=== PATIENT | female | born 1940 | race Native Hawaiian/Other Pacific Islander ===

== ENCOUNTER 2016-09-18 13:13 | Outpatient (CLI) | payer OTHER ==
[~2016-09-18 13:13] MED LIST: FLUTMIS6 INH; TIOTCAP2 INH; TRIAMTERENE/HYD1 CAP PO
== END 2016-09-18 21:06 | disposition home or self-care (01) ==
LOC: LABW 13:13
DX: B35.1 Tinea unguium (principal)
CPT/HCPCS: 36415; 84450; 84460

== ENCOUNTER 2016-10-23 11:44 | Outpatient (CLI) | payer OTHER | END 2016-10-23 19:09 | disposition home or self-care (01) | LOC: LABW 11:44 | DX: B35.1 Tinea unguium (principal) | CPT/HCPCS: 36415; 84450; 84460 ==

== ENCOUNTER 2016-11-28 14:26 | Outpatient (CLI) | payer OTHER | END 2016-11-28 15:30 | disposition home or self-care (01) | LOC: RAD 14:26 | DX: M54.5 Low back pain (principal) ==

== ENCOUNTER 2017-02-13 10:03 | Outpatient (CLI) | payer OTHER ==
[2017-02-13 10:44] LABS: PLATELET COUNT 202 K/uL (152-353)
[2017-02-13 11:04] LABS: POTASSIUM 3.6 mmol/L (3.6-5.2)
== END 2017-02-13 11:05 | disposition home or self-care (01) ==
LOC: LABW 10:03
PROVIDERS: Internal Medicine
DX: I10 Essential (primary) hypertension (principal); D51.0 Vitamin B12 deficiency anemia due to intrinsic factor deficiency
CPT/HCPCS: 36415; 80053; 80061; 81000; 82607; 84439; 84443; 85027

== ENCOUNTER 2017-02-17 08:34 | Outpatient (CLI) | payer OTHER | END 2017-02-17 19:00 | disposition home or self-care (01) | LOC: MRI 08:34 | DX: M51.16 Intervertebral disc disorders with radiculopathy, lumbar region (principal) ==

== ENCOUNTER 2017-08-28 10:54 | Outpatient (CLI) | payer OTHER ==
[2017-08-28 11:33] LABS: PLATELET COUNT 221 K/uL (152-353)
[2017-08-28 14:02] LABS: POTASSIUM 3.7 mmol/L (3.6-5.2)
== END 2017-08-28 11:54 | disposition home or self-care (01) ==
LOC: LABW 10:54
PROVIDERS: Internal Medicine
DX: I10 Essential (primary) hypertension (principal); E55.9 Vitamin D deficiency, unspecified; D51.0 Vitamin B12 deficiency anemia due to intrinsic factor deficiency; Z98.890 Other specified postprocedural states
CPT/HCPCS: 36415; 80053; 80061; 81000; 82306; 82607; 84443; 85027

== ENCOUNTER 2017-11-13 12:08 | Outpatient (CLI) | payer OTHER ==
[2017-11-13 12:31] LABS: PLATELET COUNT 237 K/uL (152-353)
[2017-11-13 12:48] LABS: POTASSIUM 4.1 mmol/L (3.6-5.2)
== END 2017-11-13 22:38 | disposition home or self-care (01) ==
LOC: LABW 12:08
PROVIDERS: Physician Assistant
DX: R68.89 Other general symptoms and signs (principal); I10 Essential (primary) hypertension; D51.0 Vitamin B12 deficiency anemia due to intrinsic factor deficiency; R79.89 Other specified abnormal findings of blood chemistry
CPT/HCPCS: 36415; 80053; 82306; 82607; 82746; 83036; 84439; 84443; 85027

== ENCOUNTER 2017-11-23 08:48 | Emergency (ER) | payer OTHER ==
[~2017-11-23] VITALS: Ht 162.6 cm; Wt 90.7 kg
[2017-11-23 09:44] LABS: PLATELET COUNT 245 K/uL (152-353)
[2017-11-23 09:53] LABS: POTASSIUM 3.9 mmol/L (3.6-5.2)
[2017-11-23 12:16] VITALS: BP 150/68; TEMP 98.4
== END 2017-11-23 12:17 | disposition home or self-care (01) ==
LOC: ED 08:48
DX: J40 Bronchitis, not specified as acute or chronic (principal); I49.8 Other specified cardiac arrhythmias
CPT/HCPCS: 36415; 80053; 85027; 93005; 94664; 96374; 99284; J2930

== ENCOUNTER 2017-12-31 11:17 | Outpatient (CLI) | payer OTHER | END 2017-12-31 19:38 | disposition home or self-care (01) | LOC: LABW 11:17 | DX: R41.3 Other amnesia (principal) | CPT/HCPCS: 36415; 82607; 82746; 84443; 85651; 86039 ==

== ENCOUNTER 2018-03-08 13:43 | Outpatient (CLI) | payer OTHER | END 2018-03-08 23:24 | disposition home or self-care (01) | LOC: LABW 13:43 | DX: M10.072 Idiopathic gout, left ankle and foot (principal) | CPT/HCPCS: 36415; 84550; 85651 ==

== ENCOUNTER 2018-06-03 09:33 | Outpatient (CLI) | payer OTHER | END 2018-06-03 23:39 | disposition home or self-care (01) | LOC: LABW 09:33 | DX: M10.071 Idiopathic gout, right ankle and foot (principal) | CPT/HCPCS: 36415; 84550 ==

== ENCOUNTER 2018-06-14 10:31 | Emergency (ER) | payer OTHER ==
[~2018-06-14] VITALS: Ht 162.6 cm; Wt 89.8 kg
[2018-06-14] MEDS ORDERED: COZAAR25 MG PO (10:53)
[2018-06-14] MEDS ORDERED: TRIA37.541 PO (10:55)
[2018-06-14] MEDS ORDERED: ELIQUIS5 MG PO (10:55)
[2018-06-14 11:40] VITALS: BP 147/61; TEMP 97.9
== END 2018-06-14 11:40 | disposition home or self-care (01) ==
LOC: EDBD 10:31 → ED 10:31
DX: M51.86 Other intervertebral disc disorders, lumbar region (principal); M25.552 Pain in left hip
CPT/HCPCS: 99282

== ENCOUNTER 2018-07-15 05:52 | Outpatient (CLI) | payer OTHER ==
[~2018-07-15 05:52] MED LIST changes: +COZAAR25 MG PO; +ELIQUIS5 MG PO; +TRIA37.541 PO
[2018-07-15 06:40] LABS: POTASSIUM 3.9 mmol/L (3.6-5.2)
[2018-07-15 06:58] LABS: PLATELET COUNT 263 K/uL (152-353)
== END 2018-07-15 21:32 | disposition home or self-care (01) ==
LOC: LABW 05:52
PROVIDERS: Internal Medicine
DX: I10 Essential (primary) hypertension (principal)
CPT/HCPCS: 36415; 80053; 80061; 81000; 83735; 84439; 84443; 85027

== ENCOUNTER 2018-09-06 08:48 | Emergency (ER) | payer OTHER ==
[~2018-09-06] VITALS: Ht 162.6 cm; Wt 87.5 kg
[2018-09-06] MEDS ORDERED: ALLO100T22 PO (09:27)
[2018-09-06 10:20] VITALS: BP 125/63; TEMP 98.3
== END 2018-09-06 10:20 | disposition home or self-care (01) ==
LOC: ED 08:48
DX: J11.1 Influenza due to unidentified influenza virus with other respiratory manifestations (principal)
CPT/HCPCS: 87502; 94664; 99283

== ENCOUNTER 2018-12-24 09:27 | Outpatient (CLI) | payer OTHER ==
[~2018-12-24 09:27] MED LIST changes: +ALLO100T22 PO
[2018-12-24 10:13] LABS: PLATELET COUNT 227 K/uL (152-353)
[2018-12-24 10:29] LABS: POTASSIUM 3.8 mmol/L (3.6-5.2)
== END 2018-12-24 19:07 | disposition home or self-care (01) ==
LOC: LABW 09:27
PROVIDERS: Specialist
DX: G31.84 Mild cognitive impairment of uncertain or unknown etiology (principal); E53.8 Deficiency of other specified B group vitamins; I10 Essential (primary) hypertension
CPT/HCPCS: 36415; 80053; 82607; 83090; 85027; 85651; 86038

== ENCOUNTER 2019-03-24 09:53 | Outpatient (CLI) | payer OTHER | END 2019-03-24 19:41 | disposition home or self-care (01) | LOC: RESP 09:53 | DX: R06.02 Shortness of breath (principal) ==

== ENCOUNTER 2019-05-12 08:56 | Emergency (ER) | payer OTHER ==
[~2019-05-12] VITALS: Ht 162.6 cm; Wt 81.6 kg
[2019-05-12 09:05] VITALS: TEMP 97.5
[2019-05-12 10:42] VITALS: BP 157/54
== END 2019-05-12 10:50 | disposition home or self-care (01) ==
LOC: ED 08:56
DX: M47.896 Other spondylosis, lumbar region (principal); M47.894 Other spondylosis, thoracic region; M41.85 Other forms of scoliosis, thoracolumbar region
CPT/HCPCS: 81000; 99283

== ENCOUNTER 2019-07-28 11:54 | Outpatient (CLI) | payer OTHER | END 2019-07-28 22:42 | disposition home or self-care (01) | LOC: LABW 11:54 | DX: R41.3 Other amnesia (principal); I10 Essential (primary) hypertension | CPT/HCPCS: 36415; 82607; 83090; 85651; 86038 ==

== ENCOUNTER 2020-03-01 09:30 | Emergency (ER) | payer OTHER ==
[~2020-03-01] VITALS: Ht 162.6 cm; Wt 75.3 kg
[2020-03-01 09:46] VITALS: BP 179/72; TEMP 98.9
[2020-03-01 10:20] LABS: PLATELET COUNT 202 K/uL (152-353)
[2020-03-01 10:29] LABS: SODIUM 140 mmol/L (136-145)
== END 2020-03-01 11:21 | disposition home or self-care (01) ==
LOC: ED 09:30
PROVIDERS: Hospitalist
DX: J06.9 Acute upper respiratory infection, unspecified (principal); J44.9 Chronic obstructive pulmonary disease, unspecified; Z20.828 Contact with and (suspected) exposure to other viral communicable diseases
CPT/HCPCS: 36415; 80053; 82550; 82553; 83880; 84484; 85027; 85610; 85730; 87635; 87651; 93005; 99283; U0003

== ENCOUNTER 2020-03-30 08:12 | Emergency (ER) | payer OTHER ==
[~2020-03-30] VITALS: Ht 162.6 cm; Wt 75.3 kg
[2020-03-30 08:27] VITALS: TEMP 98.7
[2020-03-30 09:09] LABS: PLATELET COUNT 220 K/uL (152-353)
[2020-03-30 12:57] VITALS: BP 139/65
== END 2020-03-30 12:57 | disposition home or self-care (01) ==
LOC: ED 08:12
PROVIDERS: Family Medicine
DX: K52.89 Other specified noninfective gastroenteritis and colitis (principal); N28.9 Disorder of kidney and ureter, unspecified; E87.1 Hypo-osmolality and hyponatremia
CPT/HCPCS: 36415; 80053; 81000; 82150; 83690; 83880; 85027; 96374; 99284; J2405

== ENCOUNTER 2020-07-19 09:36 | Outpatient (CLI) | payer OTHER | END 2020-07-19 20:39 | disposition home or self-care (01) | LOC: LAB 09:36 | PROVIDERS: ATTEND Internal Medicine | DX: R05 Cough (principal); Z11.59 Encounter for screening for other viral diseases | CPT/HCPCS: 87635; G2023; U0003 ==

== ENCOUNTER 2020-07-19 10:12 | Outpatient (CLI) | payer OTHER | END 2020-07-19 20:44 | disposition home or self-care (01) | LOC: RAD 10:12 | PROVIDERS: ATTEND Internal Medicine | DX: R05 Cough (principal) ==

== ENCOUNTER 2020-11-30 08:58 | Observation (INO) | payer OTHER ==
[~2020-11-30] VITALS: Ht 162.6 cm; Wt 74.0 kg
--- NOTE | 2020-11-30 09:38 | NUR ---
PT TO FLOOR, D/A FROM FROM [facility]. PT IN WITH , SOB WITH EXERTION BUT IS 96% ON RA. PT ASSISTED TO BED, VS TAKEN, ADMISSION ASSESSMENT STARTED. . PT ASSISTED INTO GOWN, TELE #4 APPLIED. 20G IV STARTED TO LFA X 2 STICKS, LABS DRAWN, COVID SWAB COLLECTED, SPUTUM AND UA ALSO COLLECTED AND ALL SPECIMENS LABLED AND TAKEN TO LAB. PT BELONGINGS - WATCH, PURSE, GLASSES. DAUGHTER IN TO ASSIST WITH ADMISSION ASSESSMENT QUESTIONS. RT IN TO PERFORM EKG AND PLACE PT ON NC 2LPM. PT TO XRAY AND BACK. PT ORIENTED TO ROOM, CALL LIGHT AND IS EDUCATED TO CALL FOR ASSIST BEFORE AMBULATING TO BATHROOM. PT VERBALIZED UNDERSTANDING. FAMILY AT BEDSIDE. BED LOW, LOCKED, SR UP X2 AND BED ALARM SET.
[2020-11-30 10:32] LABS: PLATELET COUNT 175 K/uL (152-353)
[2020-11-30 10:55] LABS: POTASSIUM 3.8 mmol/L (3.6-5.2); SODIUM 143 mmol/L (136-145)
[2020-11-30 11:08] VITALS: BP 180/86; TEMP 98.4; Ht 162.6 cm; Wt 74.0 kg
[2020-11-30 12:00] VITALS: BP 186/58; TEMP 98.2
[2020-11-30] MEDS ORDERED: PANTOPRAZOLE 40MG TA PO (15:02)
[2020-11-30] MEDS ORDERED: VITAMIN D31000 UNIT PO (15:03)
[2020-11-30] MEDS ORDERED: OXYB5TAB56 PO (15:04)
[2020-11-30] MEDS ORDERED: POTASSIUM CHLO20 MEQ PO (15:05)
[2020-11-30] MEDS ORDERED: DONE5TAB PO (15:05)
[2020-11-30] MEDS ORDERED: MECLIZINE HCL25 MG PO (15:06)
--- NOTE | 2020-11-30 15:07 | NUR ---
HOME MEDS REC COMPLETED.
[2020-11-30 16:00] VITALS: BP 161/65; TEMP 98
[2020-11-30 19:51] VITALS: BP 178/73; TEMP 98.1
--- NOTE | 2020-11-30 20:10 | NUR ---
PM MEDS GIVEN AT THIS TIME. PT TOLERATED WELL. NC @ 2L INTACT IN A HIGH-FOWLERS POSITION. NAD NOTED. PT IS SATTING 97% AT THE TIME. CALL LIGHT WITHIN REACH. SON AT BEDSIDE.
[2020-11-30 23:42] VITALS: BP 132/75; TEMP 97.8
[2020-12-01 04:27] VITALS: BP 172/58; TEMP 98.1
--- NOTE | 2020-12-01 06:37 | NUR ---
Patient was admitted with COPD and afib and was screened as high ris for RD to evaluate and Pluerasy and is 5'4" at 163 lbs. and is a 80YOF, IBW = 120+/-10% (108 to 132 lbs.) and kcal needs for IBW x 25 = 1400, x30 = 1600, x 35 - 1900, x 40 = 2200 kcal/day, protein needs x .8 to 1.5 = 44 to 82 grams per day and fluids for IBW x 25 to 40 = 1400 to 2200 ml/cc per day. BMI at 27.97 and is overweight and is 136% of IBW. BP at 172/58, elevated labs reveal B Anila Peptide, T. Protein, MCHC, total Bilirubin, Creat Kinase, CK-MB and the labs that are depressed are alt and patient has a PMH of acoliasis, afib, RVR and acute, Bronchitis with chroni airway obstruction which is also acute, HTN which is chronic, acute intractable cough and is acute, chronic OA, HTN, and also has Bronchitis and K, Ditropan, Protonix, K-Dur, Dyazide, edema and is eating 100% of meals with set up. RD Recommendaitons: 1-Monitor Labs 2-PT to work with the paitent 3-OT to work with the patient 4-Monitor BP 5-[place] all food preferences and so state on the diet card and offere substitutes with all meals
[2020-12-01 07:52] LABS: PLATELET COUNT 181 K/uL (152-353)
[2020-12-01 08:00] LABS: POTASSIUM 3.7 mmol/L (3.6-5.2)
[2020-12-01 08:27] VITALS: BP 178/70; TEMP 98
--- NOTE | 2020-12-01 10:20 | NUR ---
DC INSTRUCTIONS EXPLAINED TO PT AND TO FAMILY WHO VERBALIZED UNDERSTANDING. IV DC WITH TIP INTACT, TELE DC AND RETURNED TO DESK. WRITTEN RX GIVEN TO PT'S .
--- NOTE | 2020-12-01 10:25 | NUR ---
PT DC HOME VIA WC IN NAD WITH FAMILY. PT LEFT FLOOR IN NAD.
== END 2020-12-01 10:25 | disposition home or self-care (01) ==
LOC: MED/SURG 08:58
PROVIDERS: ADMIT Internal Medicine Endocrinology, Diabetes & Metabolism; ATTEND Internal Medicine Endocrinology, Diabetes & Metabolism
DX: J44.1 Chronic obstructive pulmonary disease with (acute) exacerbation (principal); R07.89 Other chest pain; I10 Essential (primary) hypertension
CPT/HCPCS: 80048; 80053; 81000; 82550; 82553; 83880; 84484; 85027; 87070; 87205; 87635; 93005; 94760; 96365; 96367; 96375; 99220; G0378; G0379; J0456; J0696; J2920; U0003

== ENCOUNTER 2021-02-19 10:11 | Emergency (ER) | payer OTHER ==
[~2021-02-19] VITALS: Ht 162.6 cm; Wt 72.6 kg
[~2021-02-19 10:11] MED LIST changes: +DONE5TAB PO; +MECLIZINE HCL25 MG PO; +OXYB5TAB56 PO; +PANTOPRAZOLE 40MG TA PO; +POTASSIUM CHLO20 MEQ PO; +VITAMIN D31000 UNIT PO
[2021-02-19 11:27] LABS: PLATELET COUNT 198 K/uL (152-353)
[2021-02-19 12:00] VITALS: BP 163/62; TEMP 98
== END 2021-02-19 12:00 | disposition home or self-care (01) ==
LOC: ED 10:11
PROVIDERS: Emergency Medicine Emergency Medical Services
DX: J44.1 Chronic obstructive pulmonary disease with (acute) exacerbation (principal)
CPT/HCPCS: 36415; 85027; 93005; 96365; 96375; 99284; J0696; J2930

== ENCOUNTER 2021-04-26 11:44 | Observation (INO) | payer OTHER ==
[2021-04-26] VITALS (7 sets, daily range): BP systolic 139–170; BP diastolic 49–70; TEMP 97.5–98.1; Ht 162.6 cm; Wt 73.0 kg
[~2021-04-26] VITALS: Ht 162.6 cm; Wt 73.0 kg
[2021-04-26 12:12] LABS: PLATELET COUNT 224 K/uL (152-353)
[2021-04-26 12:18] LABS: POTASSIUM 3.8 mmol/L (3.6-5.2)
[2021-04-26] MEDS ORDERED: PEPCID40 MG PO (18:57)
[2021-04-26] MEDS ORDERED: PREVAGEN EXTRA20 MG PO (18:58)
[2021-04-27] VITALS: BP 141/43; TEMP 97.7
[2021-04-27 04:00] VITALS: BP 136/43; TEMP 97.7
[2021-04-27 12:00] VITALS: BP 168/55; TEMP 98.9
== END 2021-04-27 16:30 | disposition home or self-care (01) ==
LOC: ED 11:44 → MED/SURG 13:15
PROVIDERS: Hospitalist; ADMIT Internal Medicine; ATTEND Internal Medicine
DX: R42 Dizziness and giddiness (principal); F03.90 Unspecified dementia, unspecified severity, without behavioral disturbance, psychotic disturbance, mood disturbance, and anxiety; K21.9 Gastro-esophageal reflux disease without esophagitis; I10 Essential (primary) hypertension; E55.9 Vitamin D deficiency, unspecified; N32.81 Overactive bladder; R26.89 Other abnormalities of gait and mobility; I48.91 Unspecified atrial fibrillation; J44.9 Chronic obstructive pulmonary disease, unspecified; M15.8 Other polyosteoarthritis
CPT/HCPCS: 36415; 80053; 80320; 82550; 83880; 84484; 85027; 85610; 85730; 87635; 93005; 94760; 99220; 99283; A9576; G0378; J1650; U0003

== ENCOUNTER 2021-05-15 10:38 | Emergency (ER) | payer OTHER ==
[~2021-05-15] VITALS: Ht 162.6 cm; Wt 73.0 kg
[~2021-05-15 10:38] MED LIST changes: +PEPCID40 MG PO; +PREVAGEN EXTRA20 MG PO
[2021-05-15 10:40] VITALS: TEMP 98.2
[2021-05-15 12:37] VITALS: BP 158/74
== END 2021-05-15 12:37 | disposition home or self-care (01) ==
LOC: ED 10:38
DX: J20.9 Acute bronchitis, unspecified (principal); M62.830 Muscle spasm of back
CPT/HCPCS: 99283

== ENCOUNTER 2021-08-21 15:56 | Outpatient (CLI) | payer OTHER ==
[2021-08-21 16:17] LABS: PLATELET COUNT 213 K/uL (152-353)
[2021-08-21 17:01] LABS: POTASSIUM 4.4 mmol/L (3.6-5.2)
== END 2021-08-21 19:23 | disposition home or self-care (01) ==
LOC: LABW 15:56
PROVIDERS: ATTEND Internal Medicine
DX: I10 Essential (primary) hypertension (principal); Z79.899 Other long term (current) drug therapy
CPT/HCPCS: 36415; 80053; 80061; 81000; 83036; 84439; 84443; 85027

== ENCOUNTER 2021-09-27 04:26 | Emergency (ER) | payer OTHER ==
[~2021-09-27] VITALS: Ht 162.6 cm; Wt 72.6 kg
[2021-09-27 05:03] LABS: PLATELET COUNT 198 K/uL (152-353)
[2021-09-27 05:14] LABS: POTASSIUM 3.8 mmol/L (3.6-5.2)
[2021-09-27 06:45] VITALS: BP 145/51; TEMP 97.1
== END 2021-09-27 06:45 | disposition home or self-care (01) ==
LOC: ED 04:26
PROVIDERS: Emergency Medicine
DX: S00.03XA Contusion of scalp, initial encounter (principal); S50.02XA Contusion of left elbow, initial encounter; R05.8 Other specified cough; W01.198A Fall on same level from slipping, tripping and stumbling with subsequent striking against other object, initial encounter; Y92.89 Other specified places as the place of occurrence of the external cause
CPT/HCPCS: 36415; 80048; 85027; 99283

== ENCOUNTER 2021-12-16 08:51 | Outpatient (CLI) | payer OTHER ==
[~2021-12-16 08:51] MED LIST changes: +CYAN10009 IM; +FLUTMIS6 PO; +FURO40TA93 PO
[2021-12-16 09:35] LABS: PLATELET COUNT 225 K/uL (152-353)
[2021-12-16 09:52] LABS: POTASSIUM 4.3 mmol/L (3.6-5.2)
== END 2021-12-16 18:45 | disposition home or self-care (01) ==
LOC: LABW 08:51
PROVIDERS: ATTEND Internal Medicine
DX: M17.12 Unilateral primary osteoarthritis, left knee (principal); I10 Essential (primary) hypertension
CPT/HCPCS: 36415; 80053; 80061; 81002; 84439; 84443; 85027

== ENCOUNTER 2022-01-14 11:03 | Emergency (ER) | payer OTHER ==
[~2022-01-14] VITALS: Ht 162.6 cm; Wt 72.6 kg
[2022-01-14 11:09] VITALS: TEMP 98.4
[2022-01-14 11:44] LABS: PLATELET COUNT 237 K/uL (152-353)
[2022-01-14 11:53] LABS: POTASSIUM 3.5 mmol/L (3.6-5.2)
[2022-01-14 12:17] LABS: PARTIAL THROMBOPLASTIN TIME 32.1 SECONDS (24.5-33.6)
[2022-01-14] MEDS ORDERED: SIMETHICONE PO (13:11)
[2022-01-14] MEDS ORDERED: ONDA4TAB3 PO (13:11)
[2022-01-14 13:35] VITALS: BP 158/55
== END 2022-01-14 13:40 | disposition home or self-care (01) ==
LOC: ED 11:03
PROVIDERS: Emergency Medicine
DX: R11.2 Nausea with vomiting, unspecified (principal); R19.7 Diarrhea, unspecified; E86.0 Dehydration; Z79.899 Other long term (current) drug therapy; Z51.81 Encounter for therapeutic drug level monitoring
CPT/HCPCS: 36415; 80053; 81002; 82150; 83690; 83880; 84484; 85027; 85610; 85730; 93005; 96360; 99284; J2405

== ENCOUNTER 2022-07-14 09:03 | Emergency (ER) | payer OTHER ==
[~2022-07-14] VITALS: Ht 162.6 cm; Wt 70.3 kg
[~2022-07-14 09:03] MED LIST changes: +ONDA4TAB3 PO; +SIMETHICONE PO
[2022-07-14 09:48] LABS: PLATELET COUNT 189 K/uL (152-353)
[2022-07-14 09:57] LABS: POTASSIUM 3.5 mmol/L (3.6-5.2); SODIUM 140 mmol/L (136-145)
[2022-07-14] MEDS ORDERED: CEFDINIR300 MG PO (10:27)
[2022-07-14] MEDS ORDERED: PRED20TA27 PO (10:27)
[2022-07-14 10:51] VITALS: BP 128/40; TEMP 98.1
== END 2022-07-14 11:00 | disposition home or self-care (01) ==
LOC: ED 09:03
PROVIDERS: Emergency Medicine Emergency Medical Services
DX: J44.1 Chronic obstructive pulmonary disease with (acute) exacerbation (principal)
CPT/HCPCS: 80053; 85027; 93005; 94664; 96365; 96375; 99284; J0696; J2930

== ENCOUNTER 2022-07-25 10:56 | Emergency (ER) | payer OTHER ==
[~2022-07-25] VITALS: Ht 162.6 cm; Wt 70.3 kg
[~2022-07-25 10:56] MED LIST changes: +CEFDINIR300 MG PO; +PRED20TA27 PO
[2022-07-25 11:04] VITALS: BP 163/69; TEMP 98.1
== END 2022-07-25 12:45 | disposition home or self-care (01) ==
LOC: ED 10:56
DX: S80.01XA Contusion of right knee, initial encounter (principal); W18.39XA Other fall on same level, initial encounter; Y92.89 Other specified places as the place of occurrence of the external cause
CPT/HCPCS: 99283; J1100

== ENCOUNTER 2023-02-12 09:18 | Emergency (ER) | payer OTHER ==
[~2023-02-12] VITALS: Ht 162.6 cm; Wt 59.0 kg
[2023-02-12 09:22] VITALS: TEMP 98.1
[2023-02-12 12:10] VITALS: BP 156/74
== END 2023-02-12 12:10 | disposition home or self-care (01) ==
LOC: ED 09:18
DX: M17.12 Unilateral primary osteoarthritis, left knee (principal); S83.92XA Sprain of unspecified site of left knee, initial encounter
CPT/HCPCS: 96372; 99283; J1100